=== PATIENT | male | born 1955 | race Caucasian/White ===

== ENCOUNTER → 2019-07-15 | Outpatient (CLI) | payer OTHER | LOC: CAT 11:19 | DX: Z13.6 Encounter for screening for cardiovascular disorders (principal); I25.10 Atherosclerotic heart disease of native coronary artery without angina pectoris; E78.00 Pure hypercholesterolemia, unspecified ==

== ENCOUNTER → 2019-08-12 | Outpatient (CLI) | payer BC | LOC: SJCVCIMAG 09:07 | DX: I10 Essential (primary) hypertension (principal); E78.5 Hyperlipidemia, unspecified ==